=== PATIENT | male | born 1990 | race Hispanic/Latino ===

== ENCOUNTER 2017-09-17 19:12 | Emergency (ER) | payer SELFPAY ==
[2017-09-17] MEDS ORDERED: CLINDAMYCIN IV 150 MG/ML (4 mL) VIAL ONE (19:58)
--- NOTE | 2017-09-17 19:58 | EDPHYS ---
Physician Documentation [facility] Name: Calderon Jovel Age: 27 yrs Sex: Male : 1990 Arrival Date: 09/17/2017 Time: 19:13 Bed 23 Private MD: ED Physician Justice Wells HPI: 09/17 19:53 This 27 yrs old Male presents to ER via Ambulatory with complaints of right pm1 Jaw Swelling. 19:53 The patient presents with broken tooth/teeth, pain. The problem is located in the lower pm1 right third molar (#32). Onset: The symptoms/episode began/occurred today. Duration: The symptoms are continuous. Modifying factors: The symptoms are alleviated by nothing, the symptoms are aggravated by chewing. Associated signs and symptoms: Pertinent negatives: chills, dysphagia, fever, inability to eat. Severity of symptoms: in the emergency department the symptoms are actually worse. The patient has not recently seen a physician. Historical: - Allergies: 19:46 No Known Allergies; kr2 - Home Meds: 19:46 None [Active]; kr2 - PMHx: 19:46 None; kr2 - PSHx: 19:46 None; kr2 - Immunization history:: Adult Immunizations unknown. - Social history:: Smoking status: Patient/guardian denies using tobacco. - Ebola Screening: : No symptoms or risks identified at this time. ROS: 19:53 Constitutional: Negative for fever, chills, and weight loss, Eyes: Negative for injury, pm1 pain, redness, and discharge. 19:53 Neck: Negative for injury, pain, and swelling, Cardiovascular: Negative for chest pain, palpitations, and edema, Respiratory: Negative for shortness of breath, cough, wheezing, and pleuritic chest pain, Abdomen/GI: Negative for abdominal pain, nausea, vomiting, diarrhea, and constipation, Back: Negative for injury and pain, MS/Extremity: Negative for injury and deformity, Skin: Negative for injury, rash, and discoloration, Neuro: Negative for headache, weakness, numbness, tingling, and seizure. 19:53 ENT: Positive for dental pain, Negative for sore throat, difficulty swallowing, difficulty handling secretions, hoarseness. Exam: 19:53 Constitutional: This is a well developed, well nourished patient who is awake, alert, pm1 and in no acute distress. Head/Face: Normocephalic, atraumatic. Eyes: Pupils equal round and reactive to light, extra-ocular motions intact. Lids and lashes normal. Conjunctiva and sclera are non-icteric and not injected. Cornea within normal limits. Periorbital areas with no swelling, redness, or edema. 19:53 Neck: Trachea midline, no thyromegaly or masses palpated, and no cervical lymphadenopathy. Supple, full range of motion without nuchal rigidity, or vertebral point tenderness. No Meningismus. Chest/axilla: Normal chest wall appearance and motion. Nontender with no deformity. No lesions are appreciated. Cardiovascular: Regular rate and rhythm with a normal S1 and S2. No gallops, murmurs, or rubs. Normal PMI, no JVD. No pulse deficits. Respiratory: Lungs have equal breath sounds bilaterally, clear to auscultation and percussion. No rales, rhonchi or wheezes noted. No increased work of breathing, no retractions or nasal flaring. Back: No spinal tenderness. No costovertebral tenderness. Full range of motion. Skin: Warm, dry with normal turgor. Normal color with no rashes, no lesions, and no evidence of cellulitis. MS/ Extremity: Pulses equal, no cyanosis. Neurovascular intact. Full, normal range of motion. 19:53 ENT: External ear(s): are unremarkable, Ear canal(s): are normal, TM's: are normal, Nose: is normal, Mouth: drooling, is not appreciated, no trismus, Dental exam: dental caries, specifically in the lower right third molar (#32). 19:53 Neuro: Orientation: is normal, Motor: moves all fours. Vital Signs: 19:47 BP 136 / 89; Pulse 99; Resp 18; Temp 99.5; Pulse Ox 97% on R/A; Height 6 ft. (182.88 kr2 cm); Pain 0/10; 20:19 BP 134 / 78; Pulse 89; Resp 17; Pulse Ox 99% on R/A; kr2 MDM: 19:27 Patient medically screened. pm1 19:53 Data reviewed: vital signs. Data interpreted: Pulse oximetry: on room air is 97 %. pm1 Interpretation: normal. Counseling: I had a detailed discussion with the patient and/or guardian regarding: the historical points, exam findings, and any diagnostic results supporting the discharge/admit diagnosis, the need for outpatient follow up, for definitive care, a dentist, to return to the emergency department if symptoms worsen or persist or if there are any questions or concerns that arise at home. Administered Medications: 20:01 Drug: Clindamycin 600 mg {Note: given by BETHANY Dunbar patient refused gluteal injection kr2 of medication-.} Route: IM; Site: left deltoid; 20:19 Follow up: Response: No adverse reaction kr2 Disposition: 09/17/17 19:57 Discharged to Home. Impression: Dental caries. - Condition is Stable. - Discharge Instructions: Dental Pain. - Prescriptions for Clindamycin HCl 300 mg Oral Capsule - take 1 capsule by ORAL route every 6 hours for 10 days; 40 capsule. Tylenol- Codeine #3 300-30 mg Oral Tablet - take 2 tablets by ORAL route every 6 hours As needed; 20 tablet. - Medication Reconciliation Form, Thank You Letter, Antibiotic Education, Prescription Opioid Use form. - Follow up: Emergency Department; When: As needed; Reason: Worsening of condition. Follow up: Private Physician; When: 2 - 3 days; Reason: Recheck today's complaints, Continuance of care, Re-evaluation by your physician. - Problem is new. - Symptoms have improved. Addendum: 11/05/2017 07:25 Co-signature as Attending Physician, Justice Wells MD. m a2 Signatures: Ashwin Tariq NP ADVERTISING EXECUTIVE pm1 Jolly Parson RN RN kr2 Justice Wells MD MD ma2 Corrections: (The following items were deleted from the chart) 09/17 20:20 19:57 09/17/2017 19:57 Discharged to Home. Impression: Dental caries. Condition is kr2 Stable. Forms are Medication Reconciliation Form, Thank You Letter, Antibiotic Education, Prescription Opioid Use. Follow up: Emergency Department; When: As needed; Reason: Worsening of condition. Follow up: Private Physician; When: 2 - 3 days; Reason: Recheck today's complaints, Continuance of care, Re-evaluation by your physician. Problem is new. Symptoms have improved. pm1
--- NOTE | 2017-09-17 19:58 | ER ---
Nurse's Notes [facility] Name: Calderon Jovel Age: 27 yrs Sex: Male : 1990 Arrival Date: 09/17/2017 Time: 19:13 Bed 23 Private MD: Diagnosis: Dental caries Presentation: 09/17 19:43 Presenting complaint: Patient states: he noticed swelling and tightness in right jaw kr2 today, states he does have a bad tooth on that side. Transition of care: patient was not received from another setting of care. Onset of symptoms was September 17, 2017. Risk Assessment: Do you want to hurt yourself or someone else? Patient reports no desire to harm self or others. Initial Sepsis Screen: Does the patient meet any 2 criteria? No. Patient's initial sepsis screen is negative. Does the patient have a suspected source of infection? Yes: Other: dental carries. Care prior to arrival: None. 19:43 Method Of Arrival: Ambulatory kr2 19:43 Acuity: MIHAELA 4 kr2 Triage Assessment: 19:48 General: Appears in no apparent distress. comfortable, well groomed, well developed, kr2 well nourished, Behavior is calm, cooperative, appropriate for age. Pain: Denies pain. Historical: - Allergies: 19:46 No Known Allergies; kr2 - Home Meds: 19:46 None [Active]; kr2 - PMHx: 19:46 None; kr2 - PSHx: 19:46 None; kr2 - Immunization history:: Adult Immunizations unknown. - Social history:: Smoking status: Patient/guardian denies using tobacco. - Ebola Screening: : No symptoms or risks identified at this time. Screenin:48 Abuse screen: Denies threats or abuse. Denies injuries from another. Nutritional kr2 screening: No deficits noted. Tuberculosis screening: No symptoms or risk factors identified. Fall Risk None identified. Assessment: 19:49 General: Appears in no apparent distress. comfortable, well groomed, well developed, kr2 well nourished, Behavior is calm, cooperative, appropriate for age. Pain: Denies pain. Neuro: Level of Consciousness is awake, alert, obeys commands, Oriented to person, place, time, situation, Appropriate for age. EENT: Nares are clear bilaterally Dental caries noted in lower right third molar (#32) Throat is clear. Derm: Skin is intact, is healthy with good turgor, Skin is pink, warm \T\ dry. Musculoskeletal: Swelling present in right jaw. Vital Signs: 19:47 BP 136 / 89; Pulse 99; Resp 18; Temp 99.5; Pulse Ox 97% on R/A; Height 6 ft. (182.88 kr2 cm); Pain 0/10; 20:19 BP 134 / 78; Pulse 89; Resp 17; Pulse Ox 99% on R/A; kr2 ED Course: 19:13 Patient arrived in ED. ds1 19:26 Jolly Parson, RN is Primary Nurse. kr2 19:26 Ashwin Tariq NP is PHCP. pm1 19:26 Justice Wells MD is Attending Physician. pm1 19:46 Triage completed. kr2 19:48 Patient has correct armband on for positive identification. Bed in low position. Call kr2 light in reach. Side rails up X 1. Pulse ox on. NIBP on. Door closed. Head of bed elevated. 19:51 Arm band placed on. kr2 20:19 No provider procedures requiring assistance completed. Patient did not have IV access kr2 during this emergency room visit. Administered Medications: 20:01 Drug: Clindamycin 600 mg {Note: given by BETHANY Dunbar patient refused gluteal injection kr2 of medication-.} Route: IM; Site: left deltoid; 20:19 Follow up: Response: No adverse reaction kr2 Outcome: 19:57 Discharge ordered by MD. pm1 20:19 Discharged to home ambulatory. kr2 20:19 Condition: good 20:19 Discharge instructions given to patient, Instructed on discharge instructions, follow up and referral plans. medication usage, Demonstrated understanding of instructions, follow-up care, medications, Prescriptions given X 2. 20:20 Patient left the ED. kr2 Signatures: Jerri Hogue ds1 Ashwin Tariq NP CERTIFIED DIABETES EDUCATOR pm1 Jolly Parson, BETHANY RN kr2
== END 2017-09-17 20:20 | disposition home or self-care (01) ==
LOC: ER 19:12
DX: K02.9 Dental caries, unspecified (principal)
CPT/HCPCS: 96372; 99283; S0077